=== PATIENT | female | born 1970 | race Two or more races ===

== ENCOUNTER 2017-01-14 12:24 | Emergency (ER) | payer OTHER ==
[2017-01-14 12:37] VITALS: TEMP 98.6; BMI 26.4
--- NOTE | 2017-01-14 12:45 | PDOC ---
History of Present Illness - General Chief Complaint: Cold Symptoms Stated Complaint: BODY ACHES CHILLS NAUSEA Time Seen by Provider: 01/14/17 12:30 History Source: Patient Exam Limitations: No Limitations - History of Present Illness Initial Comments: 46 yo F history HTN, kidney stones (scheduled for lithotripsy on January [address] Graves) presents with fever, chills, palpitations. She states that yesterday she abruptly started to feel ill, first warm, then chills. She denies abdominal pain, N/V/D. She checked her temperature last night and it was 100.1. IT has improved today, but she still feels ill. C/o poor appetite, decreased PO intake. Denies cp, SOB, cough. Past History - Past Medical History Allergies/Adverse Reactions: Allergies Allergy/AdvReac Type Severity Reaction Status Date / Time ciprofloxacin [From Cipro] AdvReac yeast Verified 01/14/17 12:43 infection ciprofloxacin HCl AdvReac Verified 01/14/17 12:44 [From Cipro] Home Medications: Ambulatory Orders Amlodipine Besylate [Norvasc -] 2.5 mg PO DAILY tablet 10/01/15 Atorvastatin Ca [Lipitor] 20 mg PO HS 01/14/17 Terbinafine HCl [Lamisil] 250 mg PO DAILY 01/14/17 Anemia: No Asthma: No Cancer: No Cardiac Disorders: No CVA: No COPD: No CHF: No DVT: No Dementia: No Diabetes: No Dialysis: No GI Disorders: No Disorders: Yes (RENAL COLIC) HTN: Yes Hypercholesterolemia: Yes Kidney Stones: Yes - Surgical History Cholecystectomy: Yes - Immunization History Immunization Up to Date: Yes - Psycho/Social/Smoking Cessation Hx Anxiety: No Suicidal Ideation: No Smoking Status: No Smoking History: Former smoker Have you smoked in the past 12 months: No Number of Cigarettes Smoked Daily: 0 If you are a former smoker, when did you quit?: 2001 Information on smoking cessation initiated: No Hx Alcohol Use: Yes (SOCIAL) Drug/Substance Use Hx: No Substance Use Type: Alcohol Review of Systems - Review of Systems Able to Perform ROS?: Yes Comments:: GENERAL/CONSTITUTIONAL: +Fever/chills. +Weakness. HEAD, EYES, EARS, NOSE AND THROAT: No change in vision. No ear pain or discharge. No sore throat. CARDIOVASCULAR: No chest pain or shortness of breath. RESPIRATORY: No cough, wheezing, or hemoptysis. GASTROINTESTINAL: No nausea, vomiting, diarrhea or constipation. GENITOURINARY: No dysuria, frequency, or change in urination. MUSCULOSKELETAL: No joint or muscle swelling or pain. No neck or back pain. SKIN: No rash NEUROLOGIC: No headache, vertigo, loss of consciousness, or change in strength/ sensation. ENDOCRINE: No increased thirst. No abnormal weight change. HEMATOLOGIC/LYMPHATIC: No anemia, easy bleeding, or history of blood clots. ALLERGIC/IMMUNOLOGIC: No hives or skin allergy. *Physical Exam - Vital Signs Last Vital Signs Temp Pulse Resp BP Pulse Ox 98.6 F 94 H 18 116/77 100 01/14/17 12:27 01/14/17 12:27 01/14/17 12:27 01/14/17 12:01/14/17 12:27 - Physical Exam Comments: GENERAL: Awake, alert, and fully oriented, in no acute distress. Nontoxic. HEAD: No signs of trauma EYES: PERRLA, EOMI, sclera anicteric, conjunctiva clear ENT: Auricles normal inspection, hearing grossly normal, nares patent, oropharynx clear without exudates. Dry mucosa NECK: Normal ROM, supple, no lymphadenopathy, JVD, or masses LUNGS: Breath sounds equal, clear to auscultation bilaterally. No wheezes, and no crackles HEART: Regular rate and rhythm, normal S1 and S2, no murmurs, rubs or gallops ABDOMEN: Soft, nontender, normoactive bowel sounds. No guarding, no rebound. No masses EXTREMITIES: Normal range of motion, no edema. No clubbing or cyanosis. No cords , erythema, or tenderness NEUROLOGICAL: Cranial nerves II through XII grossly intact. Normal speech, normal gait SKIN: Warm, Dry, normal turgor, no rashes or lesions noted. Heart Score/ECG Review - ECG Impressions Comment:: EKG read 13:28- NSR 86 bpm, no acute ST/T changes ED Treatment Course - LABORATORY CBC & Chemistry Diagram: 01/14/17 13:38 01/14/17 13:38 Medical Decision Making - Medical Decision Making Pt presented with fever yesterday, feeling weak and nauseous today. No other specific symptoms. In light of history of kidney stones, obtained sepsis workup , for concern for infected stone. UA was wnl. Lactic negative. CBC and CMP wnl. CXR no acute findings. At this point, CT was obtained to evaluate the stones, r/ o hydro. No acute findings on CT. Patient afebrile during entire ED stay, tolerating PO. Stable for DC home. I counseled her to f/u with Dr. Graves as soon as possible, call in AM to discuss her symptoms from the weekend, as she is scheduled for procedure on . *DC/Admit/Observation/Transfer Diagnosis at time of Disposition: Fever Qualifiers: Fever type: unspecified Qualified Code(s): R50.9 - Fever, unspecified - Discharge Dispostion Disposition: HOME Condition at time of disposition: Stable Admit: No - Patient Instructions Printed Discharge Instructions: DI for Fever (Symptom) -- Adult Additional Instructions: Tylenol as needed for fever. Follow up with urology- call tomorrow to discuss everything.
[2017-01-14] MEDS ORDERED: SODIUM CHLORIDE 1,000 ML IV STA (13:17)
[2017-01-14 13:31] LABS: PH,URINE 5.5 (4.5-8); URINE APPEARANCE Clear; URINE BILIRUBIN Negative (NEGATIVE); URINE BLOOD Trace-intact (NEGATIVE); URINE GLUCOSE (UA) Negative (NEGATIVE); URINE KETONE Negative (NEGATIVE); URINE LEUK ESTERASE Negative (NEGATIVE); URINE NITRITE Negative (NEGATIVE); URINE UROBILINOGEN 0.2 (0.2-1.0)
[2017-01-14 13:32] LABS: URINE COLOR YELLOW; URINE PROTEIN 1+ (NEGATIVE)
[2017-01-14 13:41] LABS: CALCIUM OXALATE CRYSTALS FEW /hpf (NONE SEEN); URINE BACTERIA FEW /hpf (NEGATIVE); URINE RBC 0-2 /hpf (0-3)
[2017-01-14 13:50] LABS: BASOPHIL 0.9 % (0-2.0); EOSINOPHIL 0.9 % (0-4.5); MCH 29.3 pg (25.7-33.7); MCHC 34.5 g/dl (32.0-36.0); MEAN CELL VOLUME 84.9 fl (80-96); MEAN PLT VOLUME 9.1 fl (7.5-11.1); NEUTROPHILS 65.6 % (42.8-82.8); PLATELET COUNT 165 K/MM3 (134-434); RDW 12.6 % (11.6-15.6); WHITE BLOOD COUNT 4.8 K/mm3 (4.0-10.8)
[2017-01-14] MEDS ORDERED: IBUPROFEN 600 MG TABLET (FP) PO ONE ×2 (13:59→14:01)
[2017-01-14 14:01] LABS: ALK PHOS 112 U/L (32-92); ANION GAP 3 (8-16); BILIRUBIN,TOTAL 0.6 mg/dl (0.2-1.0); CALCIUM 8.6 mg/dl (8.4-10.2); CO2 25 mmol/L (22-28); CREATININE 0.6 mg/dl (0.6-1.3); GLUCOSE,RANDOM 100 mg/dl (74-106); SGOT/AST 22 U/L (10-42); SGPT/ALT 10 U/L (10-40); TOT PROT 6.5 g/dl (6.4-8.3)
[2017-01-14 16:29] VITALS: BP 118/76; PULSE 86
--- NOTE | 2017-01-16 09:23 | EKG ---
Test Reason : Blood Pressure : / mmHG Vent. Rate : 086 BPM Atrial Rate : 086 BPM P-R Int : 160 ms QRS Dur : 086 ms QT Int : 378 ms P-R-T Axes : 060 -21 045 degrees QTc Int : 452 ms NORMAL SINUS RHYTHM POSSIBLE LEFT ATRIAL ENLARGEMENT POSSIBLE ANTERIOR INFARCT (CITED ON OR BEFORE 29-SEP-2015) WHEN COMPARED WITH ECG OF 29-SEP-2015 22:48, NO SIGNIFICANT CHANGE WAS FOUND Confirmed by MD ELKINS MARJORY ([id number]) on 01/16/2017 9:23:44 AM Referred By: CHEMO LOPEZ Confirmed By:RAMON ELKINS MD
== END 2017-01-14 18:58 | disposition home or self-care (01) ==
LOC: FER 12:24
PROC: 3E0337Z Introduction of Electrolytic and Water Balance Substance into Peripheral Vein, Percutaneous Approach (ICD-10-PCS; principal; 2017-01-14)
DX: R50.9 Fever, unspecified (principal); I10 Essential (primary) hypertension; E78.00 Pure hypercholesterolemia, unspecified; Z87.891 Personal history of nicotine dependence; Z87.442 Personal history of urinary calculi
CPT/HCPCS: 36415; 71010-TC; 74176; 80053; 81003; 81015; 83605; 84703; 85025; 87040; 93005; 99283-25

== ENCOUNTER 2017-01-17 11:12 | Emergency (ER) | payer OTHER ==
[2017-01-17 11:15] VITALS: TEMP 98.8; BMI 26.4
[2017-01-17] MEDS ORDERED: ONDANSETRON 4 MG/2 ML VIAL IVPUSH ONE (11:37)
[2017-01-17] MEDS ORDERED: SODIUM CHLORIDE 1,000 ML IV STA ×2 (11:37→13:47)
[2017-01-17] MEDS ORDERED: ONDANSETRON 4 MG/2 ML VIAL ONE (11:39)
[2017-01-17 13:03] LABS: BASOPHIL 0.3 % (0-2.0); EOSINOPHIL 1.8 % (0-4.5); MCH 28.7 pg (25.7-33.7); MCHC 34.3 g/dl (32.0-36.0); MEAN CELL VOLUME 83.7 fl (80-96); MEAN PLT VOLUME 9.5 fl (7.5-11.1); NEUTROPHILS 57.1 % (42.8-82.8); PLATELET COUNT 179 K/MM3 (134-434); RDW 13.2 % (11.6-15.6)
[2017-01-17 13:21] LABS: ALBUMIN 3.7 g/dl (3.4-5.0); ANION GAP 7 (8-16); BILIRUBIN,TOTAL 0.6 mg/dL (0.2-1.0); CALCIUM 9.4 mg/dL (8.5-10.1); CO2 28 mmol/L (21-32); CREATININE 0.7 mg/dL (0.55-1.02); GLUCOSE,RANDOM 92 mg/dL (74-106); SGOT/AST 21 U/L (15-37); SGPT/ALT 18 U/L (12-78); TOT PROT 6.8 g/dl (6.4-8.2)
[2017-01-17 13:22] LABS: ALK PHOS 133 U/L (45-117)
[2017-01-17] MEDS ORDERED: ONDANSETRON *ODT* 4 MG TABLET SL ONE (13:47)
[2017-01-17] MEDS ORDERED: POTASSIUM CHLORIDE TABS 20 MEQ TABLET.ER (FP) PO ONE ×2 (13:47→14:14)
[2017-01-17] MEDS ORDERED: DIPHENOXYLATE 2.5/ATROPINE.025 1 COMBO TABLET PO ONE (13:58)
--- NOTE | 2017-01-17 13:59 | PDOC ---
History of Present Illness - General History Source: Patient Exam Limitations: No Limitations - History of Present Illness Initial Comments: 01/17/17 14:01 The patient is a 46 year old female, with a significant past medical history of hypertension, hyperlipidemia, and kidney stones, who presents to the emergency department complaining of nausea, vomiting, and diarrhea for approximately 3 days. The patient reports she has been unable to tolerate anything PO and took an imodium with no relief. Patient reports her emetic episodes are yellow, nonbloody, and nonbilious. She reports diarrhea every hour yesterday, which she describes as watery. Patient denies any recent travel or any known sick contacts. She denies any fever, chills, weakness, or body aches. Per records, the patient was recently in the ED on 01/14/17 with similar symptoms. Patient states she feels like she is putting out more fluids than she is taking in. Allergies: Ciprofloxacin HCl Past Surgical History: Cholecystectomy Social History: Former smoker. Social ETOH use. No recreational drug use. PCP: Dr. Graves <Jett Abdul - Last Filed: 01/17/17 16:22> <Fernando Vo - Last Filed: 01/17/17 16:32> - General Chief Complaint: Vomiting/Diarrhea Stated Complaint: DIARRHEA Time Seen by Provider: 01/17/17 11:29 Past History <Jett Abdul - Last Filed: 01/17/17 16:22> - Past Medical History Anemia: No Asthma: No Cancer: No Cardiac Disorders: No CVA: No COPD: No CHF: No DVT: No Dementia: No Diabetes: No Dialysis: No GI Disorders: No Disorders: No HTN: Yes Hypercholesterolemia: Yes Kidney Stones: Yes - Surgical History Cholecystectomy: Yes - Immunization History Immunization Up to Date: Yes - Psycho/Social/Smoking Cessation Hx Anxiety: No Suicidal Ideation: No Smoking Status: No Smoking History: Never smoked Have you smoked in the past 12 months: No Number of Cigarettes Smoked Daily: 0 If you are a former smoker, when did you quit?: 2001 Hx Alcohol Use: No Drug/Substance Use Hx: No Substance Use Type: None <Fernando Vo - Last Filed: 01/17/17 16:32> - Past Medical History Allergies/Adverse Reactions: Allergies Allergy/AdvReac Type Severity Reaction Status Date / Time ciprofloxacin HCl AdvReac Verified 01/17/17 11:15 [From Cipro] Home Medications: Ambulatory Orders Amlodipine Besylate [Norvasc -] 2.5 mg PO DAILY tablet 10/01/15 Atorvastatin Ca [Lipitor] 20 mg PO HS 01/14/17 Terbinafine HCl [Lamisil] 250 mg PO DAILY 01/14/17 Ondansetron [Zofran -] 4 mg PO TID #21 tablet 01/17/17 Review of Systems - Review of Systems Able to Perform ROS?: Yes Comments:: 01/17/17 14:02 GENERAL/CONSTITUTIONAL: No fever or chills. No weakness. HEAD, EYES, EARS, NOSE AND THROAT: No change in vision. No ear pain or discharge. No sore throat. CARDIOVASCULAR: No chest pain or shortness of breath. RESPIRATORY: No cough, wheezing, or hemoptysis. GASTROINTESTINAL: Yes: +nausea, +vomiting, +diarrhea. No constipation. GENITOURINARY: No dysuria, frequency, or change in urination. MUSCULOSKELETAL: No joint or muscle swelling or pain. No neck or back pain. SKIN: No rash NEUROLOGIC: No headache, vertigo, loss of consciousness, or change in strength/ sensation. ENDOCRINE: No increased thirst. No abnormal weight change. HEMATOLOGIC/LYMPHATIC: No anemia, easy bleeding, or history of blood clots. ALLERGIC/IMMUNOLOGIC: No hives or skin allergy. <FrankoGiomilsleon - Last Filed: 01/17/17 16:22> *Physical Exam - Vital Signs Last Vital Signs Temp Pulse Resp BP Pulse Ox 98.8 F 88 20 114/78 99 01/17/17 11:12 01/17/17 11:12 01/17/17 11:12 01/17/17 11:12 01/17/17 11:12 - Physical Exam Comments: 01/17/17 14:02 GENERAL: Awake, alert, and fully oriented, in no acute distress HEAD: No signs of trauma EYES: PERRLA, EOMI, sclera anicteric, conjunctiva clear ENT: Auricles normal inspection, hearing grossly normal, nares patent, oropharynx clear without exudates. Moist mucosa NECK: Normal ROM, supple, no lymphadenopathy, JVD, or masses LUNGS: Breath sounds equal, clear to auscultation bilaterally. No wheezes, and no crackles HEART: Regular rate and rhythm, normal S1 and S2, no murmurs, rubs or gallops ABDOMEN: Soft, nontender, normoactive bowel sounds. No guarding, no rebound. No masses EXTREMITIES: Normal range of motion, no edema. No clubbing or cyanosis. No cords , erythema, or tenderness NEUROLOGICAL: Cranial nerves II through XII grossly intact. Normal speech, normal gait SKIN: Warm, Dry, normal turgor, no rashes or lesions noted. <Jett Abdul - Last Filed: 01/17/17 16:22> - Vital Signs Last Vital Signs Temp Pulse Resp BP Pulse Ox 98.8 F 88 20 114/78 99 01/17/17 11:12 01/17/17 11:12 01/17/17 11:12 01/17/17 11:12 01/17/17 11:12 <Fernando Vo - Last Filed: 01/17/17 16:32> Heart Score/ECG Review - ECG Intrepretation Comment:: 01/17/17 14:02 Vent Rate: 77 bpm IMPRESSION: Normal sinus rhythm. Right superior axis deviation. <Jett Abdul - Last Filed: 01/17/17 16:22> ED Treatment Course - LABORATORY CBC & Chemistry Diagram: 01/17/17 11:55 01/17/17 12:05 - ADDITIONAL ORDERS Additional order review: Laboratory Results 01/17/17 12:05 Sodium 141 Potassium 3.3 L Chloride 106 Carbon Dioxide 28 Anion Gap 7 L BUN 9 D Creatinine 0.7 Creat Clearance w eGFR > 60 Random Glucose 92 Calcium 9.4 Total Bilirubin 0.6 D AST 21 D ALT 18 Alkaline Phosphatase 133 H D Total Protein 6.8 Albumin 3.7 Lipase 80 01/17/17 11:55 RBC 4.67 MCV 83.7 MCHC 34.3 RDW 13.2 MPV 9.5 Neutrophils % 57.1 Lymphocytes % 30.9 Monocytes % 9.9 Eosinophils % 1.8 Basophils % 0.3 - Medications Given in the ED: ED Medications Discontinued Medications Generic Name Dose Route Start Last Admin Trade Name Freq PRN Reason Stop Dose Admin Sodium Chloride 1,000 mls @ 2,000 mls/hr 01/17/17 11:37 01/17/17 12:04 Normal Saline - IV 01/17/17 12:06 2,000 mls/hr ASDIR STA Administration Ondansetron HCl 4 mg 01/17/17 11:37 01/17/17 12:05 Zofran Injection IVPUSH 01/17/17 11:38 4 mg ONCE ONE Administration <Jett Abdul - Last Filed: 01/17/17 16:22> - LABORATORY CBC & Chemistry Diagram: 01/17/17 11:55 01/17/17 12:05 - ADDITIONAL ORDERS Additional order review: Laboratory Results 01/17/17 12:05 Sodium 141 Potassium 3.3 L Chloride 106 Carbon Dioxide 28 Anion Gap 7 L BUN 9 D Creatinine 0.7 Creat Clearance w eGFR > 60 Random Glucose 92 Calcium 9.4 Total Bilirubin 0.6 D AST 21 D ALT 18 Alkaline Phosphatase 133 H D Total Protein 6.8 Albumin 3.7 Lipase 80 01/17/17 11:55 RBC 4.67 MCV 83.7 MCHC 34.3 RDW 13.2 MPV 9.5 Neutrophils % 57.1 Lymphocytes % 30.9 Monocytes % 9.9 Eosinophils % 1.8 Basophils % 0.3 - Medications Given in the ED: ED Medications Discontinued Medications Generic Name Dose Route Start Last Admin Trade Name Freq PRN Reason Stop Dose Admin Sodium Chloride 1,000 mls @ 2,000 mls/hr 01/17/17 11:37 01/17/17 12:04 Normal Saline - IV 01/17/17 12:06 2,000 mls/hr ASDIR STA Administration Ondansetron HCl 4 mg 01/17/17 11:37 01/17/17 12:05 Zofran Injection IVPUSH 01/17/17 11:38 4 mg ONCE ONE Administration <Fernando Vo - Last Filed: 01/17/17 16:32> *DC/Admit/Observation/Transfer - Attestations Scribe Attestion: 01/17/17 14:02 Documentation prepared by Jett Abdul, acting as medical records administrator for Fernando Vo DO. <Jett Abdul - Last Filed: 01/17/17 16:22> - Discharge Dispostion Admit: No - Attestations Physician Attestion: 01/17/17 13:59 I, Dr. Fernando Vo, attest that this document has been prepared under my direction and personally reviewed by me in its entirety. I further attest, that it accurately reflects all work, treatment, procedures and medical decision -making performed by me. <Fernando Vo - Last Filed: 01/17/17 16:32> Diagnosis at time of Disposition: Gastroenteritis - Discharge Dispostion Disposition: HOME Condition at time of disposition: Good - Prescriptions Prescriptions: Ondansetron [Zofran -] 4 mg PO TID #21 tablet - Referrals Referrals: Ortiz Gore MD [Primary Care Provider] - - Patient Instructions Printed Discharge Instructions: DI for Viral Gastroenteritis -- Adult Additional Instructions: [place]- Sorry that you feel so horrible. Your tests are all good. Please use the zofran to control your nausea and vomiting. Clear liquids only until you follow up with your doctor in a day or two. Return to us if any problems or concerns. Best- Dr. Fernando Vo - Post Discharge Activity Work/School Note: Back to Work
[2017-01-17] MEDS ORDERED: diphenhydrAMINE HCL 12.5 MG/5 ML UNIT-DOSE CUPS PO ONE (14:08)
[2017-01-17] MEDS ORDERED: LIDOCAINE VISCOUS 2% ORAL/TOP 100 ML BOTTLE MM ONE (14:08)
[2017-01-17] MEDS ORDERED: RANITIDINE HCL 150 MG/10 ML UNIT-DOSE CUP PO ONE (14:08)
[2017-01-17] MEDS ORDERED: DIPHENOXYLATE 2.5/ATROPINE.025 1 COMBO TABLET ONE (14:13)
[2017-01-17] MEDS ORDERED: ONDANSETRON 8 MG TABLET (FP) PO ONE (14:14)
[2017-01-17] MEDS ORDERED: diphenhydrAMINE HCL 12.5 MG/5 ML BULK BOTTLE ONE (14:19)
[2017-01-17 15:08] LABS: TROPONIN I < 0.02 ng/ml (0.00-0.05)
[2017-01-17 16:25] LABS: URINE APPEARANCE CLOUDY; URINE BILIRUBIN NEGATIVE (NEGATIVE); URINE BLOOD NEGATIVE (NEGATIVE); URINE COLOR LTYELLOW; URINE GLUCOSE (UA) NEGATIVE (NEGATIVE); URINE KETONE NEGATIVE (NEGATIVE); URINE NITRITE NEGATIVE (NEGATIVE); URINE PROTEIN NEGATIVE (NEGATIVE); URINE UROBILINOGEN NEGATIVE mg/dL (0.2-1.0)
[2017-01-17 16:31] LABS: URINE LEUK ESTERASE 3+ (NEGATIVE)
[2017-01-17 16:38] VITALS: BP 105/70; PULSE 82
[2017-01-17 17:40] LABS: URINE BACTERIA RARE /hpf (NONE SEEN); URINE MUCUS RARE; URINE RBC 7 /hpf (0-3); URINE WBC 29 /hpf (3-5)
== END 2017-01-17 17:02 | disposition home or self-care (01) ==
LOC: JER 11:12
PROC: 3E033GC Introduction of Other Therapeutic Substance into Peripheral Vein, Percutaneous Approach (ICD-10-PCS; principal; 2017-01-17)
PROC: 3E0337Z Introduction of Electrolytic and Water Balance Substance into Peripheral Vein, Percutaneous Approach (ICD-10-PCS; 2017-01-17)
DX: K52.9 Noninfective gastroenteritis and colitis, unspecified (principal); I10 Essential (primary) hypertension; E78.5 Hyperlipidemia, unspecified; Z87.442 Personal history of urinary calculi; Z87.891 Personal history of nicotine dependence
CPT/HCPCS: 71020-TC; 80053; 81003; 81015; 82550; 83690; 84484; 85025; 96361; 96374; 99283-25

== ENCOUNTER 2017-06-25 11:45 | Emergency (ER) | payer OTHER ==
[2017-06-25] MEDS ORDERED: ACETAMINOPHEN 325 MG TABLET (FP) PO ONE (11:47)
--- NOTE | 2017-06-25 11:50 | PDOC ---
History of Present Illness - General Chief Complaint: Laceration Stated Complaint: LACERATION TO BACK OF HEAD Time Seen by Provider: 06/25/17 11:47 - History of Present Illness Initial Comments: 06/25/17 11:48 47yo female presents ambulatory from home after hitting her head on a metal board. States she was cleaning her kitchen when she hit her head. States she did not have LOC. Pt c/o pain at the site - bleeding from posterior scalp. Pt states tetanus UTD. Did not fall. C/o headache and is shaken up from seeing the bleeding. Pt tearful in the exam room. No anticoagulants or antiplt meds Neuro intact PMHx: HTN, HLD - on lipitor and norvasc PSHx: ezra Allergies: cipro Past History - Past Medical History Allergies/Adverse Reactions: Allergies Allergy/AdvReac Type Severity Reaction Status Date / Time ciprofloxacin HCl AdvReac Verified 06/25/17 11:47 [From Cipro] Home Medications: Ambulatory Orders Amlodipine Besylate [Norvasc -] 2.5 mg PO DAILY tablet 10/01/15 Atorvastatin Ca [Lipitor] 20 mg PO HS 01/14/17 Anemia: No Asthma: No Cancer: No Cardiac Disorders: No CVA: No COPD: No CHF: No DVT: No Dementia: No Diabetes: No Dialysis: No GI Disorders: No Disorders: No HTN: Yes Hypercholesterolemia: Yes Kidney Stones: Yes - Surgical History Cholecystectomy: Yes - Immunization History Immunization Up to Date: Yes - Suicide/Smoking/Psychosocial Hx Smoking Status: No Smoking History: Never smoked Have you smoked in the past 12 months: No Number of Cigarettes Smoked Daily: 0 If you are a former smoker, when did you quit?: 2001 Hx Alcohol Use: No Drug/Substance Use Hx: No Substance Use Type: None Review of Systems - Review of Systems Able to Perform ROS?: Yes Is the patient limited Dutch proficient: No Constitutional: Yes: Other (anxious). No: Chills, Fever HEENTM: No: Eye Pain, Blurred Vision, Nose Pain, Throat Pain Respiratory: No: Cough, Shortness of Breath, Wheezing Cardiac (ROS): No: Chest Pain, Irregular Heart Rate ABD/GI: No: Diarrhea, Nausea, Vomiting : No: Burning, Dysuria Musculoskeletal: Yes: Other (paraspinal neck pain). No: Back Pain Integumentary: Yes: Other (laceration linear to posterior occipital region about 1.5cm in length - linear and superficial -no active bleeding). No: Bruising Neurological: Yes: Headache. No: Numbness, Paresthesia, Dizziness Psychiatric: Yes: Anxiety All Other Systems: Reviewed and Negative *Physical Exam - Vital Signs 06/25/17 12:11 Selected Entries 06/25/17 11:46 Temperature 98.5 F Pulse Rate 105 H Respiratory 20 Rate Blood Pressure 168/101 O2 Sat by Pulse 98 Oximetry (%) Weight 73.482 kg - Physical Exam General Appearance: Yes: Nourished, Appropriately Dressed, Other (anxious/ tearful) HEENT: positive: EOMI, LEO, Normal Voice, Pharynx Normal. negative: Rhinorrhea Neck: positive: Supple, Other (paraspinal ttp, no midline ttp, no step offs or deformities). negative: Tender, Rigid, Decreased range of motion Respiratory/Chest: positive: Lungs Clear, Normal Breath Sounds. negative: Respiratory Distress, Wheezing Cardiovascular: positive: Regular Rhythm, Tachycardia Gastrointestinal/Abdominal: positive: Flat, Soft. negative: Guarding, Rebound, Tenderness Musculoskeletal: positive: Normal Inspection. negative: CVA Tenderness, Vertebral Tenderness Extremity: positive: Normal Capillary Refill, Normal Inspection, Normal Range of Motion. 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, Fully Oriented, Alert, Normal Mood/ Affect, Normal Response, Motor Strength 5/5, Other (ambulatory with a steady gait) Procedures - Laceration/Wound Repair Posterior Head Wound Length: to 2.5 cm Wound Explored: clean Wound's Depth, Shape: superficial, linear Irrigated w/ Saline: Yes Anesthesia: 2% Lidocaine w/ Epi Amount of Anesthetic (ccs): 1 Wound Debrided: minimal Wound Repaired With: [place] Number of Sutures: 3 (farnaz) Layer Closure: Yes Sterile Dressing Applied: Yes Progress: 06/25/17 12:09 pt tolerated the procedure well Medical Decision Making - Medical Decision Making 06/25/17 12:12 a/p: 47yo female with laceration to posterior head -neuro intact -superficial lac will need farnaz -will numb prior to farnaz -no focal neuro deficits -low impact head injury- no risk factors for intracranial bleeding, neuro intact , no loc, no anticoag/antiplts -will repair lac 06/25/17 12:43 re-ass: pt tolerated po intake -crackers and juice repeat neuro exam intact no focal deficits no oozing or drainage from laceration applied dressing pt stable for d/c to home discussed risks/benefits of ct scan no ct at this time and patient agrees discussed staple removal discussed all reasons to return to the ED and need for follow up. All questions answered. 06/25/17 12:47 repeat vitals: 119/84, hr 84 06/25/17 12:58 pt has been ambulatory in the ED *DC/Admit/Observation/Transfer Diagnosis at time of Disposition: Occipital scalp laceration - Discharge Dispostion Disposition: HOME Condition at time of disposition: Stable Admit: No - Referrals - Patient Instructions Printed Discharge Instructions: DI for Laceration Repair -- [place], DI for Closed Head Injury Additional Instructions: Please have the farnaz removed in 7 days. Please do not wash your head today - do not get the laceration wet for 24 hours. Please apply antibiotic topical ointment to the laceration. Please make a follow up appointment with your PMD. Please return to the ED with any further complaints. - Post Discharge Activity
[2017-06-25 11:57] VITALS: TEMP 98.5; BMI 26.9
[2017-06-25] MEDS ORDERED: LIDO 2%/EPI 1:200000 PRESRVFRE (20 ML SDVIAL) ONE (11:58)
[2017-06-25] MEDS ORDERED: ACETAMINOPHEN 325 MG TABLET (FP) ONE (11:59)
[2017-06-25] MEDS ORDERED: LIDOCAINE HCL 2% (50ML VIAL) SQ ONE (12:07)
[2017-06-25 12:49] VITALS: BP 119/84; PULSE 89
== END 2017-06-25 12:53 | disposition home or self-care (01) ==
LOC: FER 11:45
PROC: 0HQ0XZZ Repair Scalp Skin, External Approach (ICD-10-PCS; principal; 2017-06-25)
DX: S01.01XA Laceration without foreign body of scalp, initial encounter (principal); W22.8XXA Striking against or struck by other objects, initial encounter; Y93.89 Activity, other specified; Y92.9 Unspecified place or not applicable; I10 Essential (primary) hypertension; E78.5 Hyperlipidemia, unspecified; Z87.891 Personal history of nicotine dependence
CPT/HCPCS: 99282-25

== ENCOUNTER 2017-07-02 14:28 | Emergency (ER) | payer OTHER ==
[2017-07-02 14:36] VITALS: BP 167/97; PULSE 88; TEMP 98; BMI 26.7
--- NOTE | 2017-07-02 15:29 | PDOC ---
Suture Removal/Wound Check HPI - History of Present Illness Chief Complaint: Suture/Staple Removal(Here) Stated Complaint: STAPLE REMOVED FROM SCALP WOUND Time Seen by Provider: 07/02/17 14:49 - Onset of Previous Treatment Comment:: 07/02/17 15:34 [place] 3 removed from the occiput. Wound well-healed. No swelling, erythema, warmth, drainage, or other sign of infection. Continued wound care and follow- up as directed. Past History - Past Medical History Allergies/Adverse Reactions: Allergies Allergy/AdvReac Type Severity Reaction Status Date / Time ciprofloxacin HCl AdvReac Verified 06/25/17 11:47 [From Cipro] Home Medications: Ambulatory Orders Amlodipine Besylate [Norvasc -] 2.5 mg PO DAILY tablet 10/01/15 Atorvastatin Ca [Lipitor] 20 mg PO HS 01/14/17 Anemia: No Asthma: No Cancer: No Cardiac Disorders: No CVA: No COPD: No CHF: No DVT: No Dementia: No Diabetes: No Dialysis: No GI Disorders: No Disorders: No HTN: Yes Hypercholesterolemia: Yes Kidney Stones: Yes - Surgical History Cholecystectomy: Yes - Immunization History Immunization Up to Date: Yes - Suicide/Smoking/Psychosocial Hx Smoking Status: No Smoking History: Former smoker Have you smoked in the past 12 months: No Number of Cigarettes Smoked Daily: 0 If you are a former smoker, when did you quit?: 2001 Information on smoking cessation initiated: No Hx Alcohol Use: No Drug/Substance Use Hx: No Substance Use Type: None *DC/Admit/Observation/Transfer Diagnosis at time of Disposition: Encounter for removal of sutures - Discharge Dispostion Disposition: HOME Condition at time of disposition: Improved Admit: No - Referrals - Patient Instructions Printed Discharge Instructions: DI for Suture Removal Additional Instructions: Recheck if bleeding or infection. Avoid vigorous combing or brushing for another 5 days. - Post Discharge Activity
== END 2017-07-02 15:38 | disposition home or self-care (01) ==
LOC: FER 14:28
DX: Z48.02 Encounter for removal of sutures (principal)
CPT/HCPCS: 99281-25

== ENCOUNTER 2017-11-13 17:12 | Emergency (ER) | payer OTHER ==
[2017-11-13 17:19] VITALS: BP 140/83; PULSE 80; TEMP 99.2; BMI 26.9
--- NOTE | 2017-11-13 17:55 | PDOC ---
History of Present Illness - General History Source: Patient Exam Limitations: No Limitations <Magi Rees - Last Filed: 11/13/17 17:49> - History of Present Illness Initial Comments: 11/13/17 18:00 Patient is a 47F, with PMHx of hypertension, hyperlipidemia, and kidney stones, who presents to the emergency department complaining of right sided scalp pain. She states that she had this scalp pain since yesterday. She woke up this morning and states that pain worsened. She also noticed white bumps on her scalp , especially on the right side. She states the scalp pain is worse when palpated. She states she has never felt this pain before. She also endorses blurry vision in her right eye as well as a headache and chills. She says she took Tylenol which helped minimally she says helps a little. She is unsure if she has had chicken pox when she was younger. She denies fever or recent antibiotics use. Allergies: Ciprofloxacin HCl Past Surgical History: Cholecystectomy Social History: Former smoker. Social ETOH use. No recreational drug use. PCP: Dr. Ortiz Gore <Layne Solares - Last Filed: 11/13/17 18:04> - General Chief Complaint: Pain, Acute Stated Complaint: PAIN ON SCALP Past History - Past Medical History Anemia: No Asthma: No Cancer: No Cardiac Disorders: No CVA: No COPD: No CHF: No DVT: No Dementia: No Diabetes: No Dialysis: No GI Disorders: No Disorders: No HTN: Yes Hypercholesterolemia: Yes Kidney Stones: Yes - Surgical History Cholecystectomy: Yes - Immunization History Immunization Up to Date: Yes - Suicide/Smoking/Psychosocial Hx Smoking Status: No Smoking History: Former smoker Have you smoked in the past 12 months: No Number of Cigarettes Smoked Daily: 0 If you are a former smoker, when did you quit?: 2001 Information on smoking cessation initiated: No Hx Alcohol Use: No Drug/Substance Use Hx: No Substance Use Type: None <Magi Rees - Last Filed: 11/13/17 17:49> <Layne Solares - Last Filed: 11/13/17 18:04> - Past Medical History Allergies/Adverse Reactions: Allergies Allergy/AdvReac Type Severity Reaction Status Date / Time ciprofloxacin HCl AdvReac Verified 11/13/17 17:14 [From [facility]] Home Medications: Ambulatory Orders Amlodipine Besylate [Norvasc -] 2.5 mg PO DAILY tablet 10/01/15 Atorvastatin Ca [Lipitor] 20 mg PO HS 01/14/17 Sulfamethoxazole/Trimethoprim [Bactrim Ds Tablet] 1 each PO BID #14 tablet 11/13 Valacyclovir HCl [Valtrex -] 1,000 mg PO TID #21 tablet 11/13/17 Review of Systems - Review of Systems Comments:: 11/13/17 18:01 GENERAL/CONSTITUTIONAL: No fever. +chills. No weakness. HEAD, EYES, EARS, NOSE AND THROAT: +right sided scalp pain.+ right eye pain. + blurry vision in right eye. No ear pain or discharge. No sore throat. GASTROINTESTINAL: No nausea, vomiting, diarrhea or constipation. GENITOURINARY: No dysuria, frequency, or change in urination. CARDIOVASCULAR: No chest pain or shortness of breath. RESPIRATORY: No cough, wheezing, or hemoptysis. MUSCULOSKELETAL: No joint or muscle swelling or pain. No neck or back pain. SKIN: +pustular skin lesions on right scalp NEUROLOGIC: No headache, vertigo, loss of consciousness, or change in strength/ sensation. ENDOCRINE: No increased thirst. No abnormal weight change. HEMATOLOGIC/LYMPHATIC: No anemia, easy bleeding, or history of blood clots. ALLERGIC/IMMUNOLOGIC: No hives or skin allergy. 11/13/17 18:04 <Layne Solares - Last Filed: 11/13/17 18:04> *Physical Exam - Vital Signs Last Vital Signs Temp Pulse Resp BP Pulse Ox 99.2 F 80 18 140/83 100 11/13/17 17:13 11/13/17 17:13 11/13/17 17:13 11/13/17 17:13 11/13/17 17:13 <Magi Rees - Last Filed: 11/13/17 17:49> - Vital Signs Last Vital Signs Temp Pulse Resp BP Pulse Ox 99.2 F 80 18 140/83 100 11/13/17 17:13 11/13/17 17:13 11/13/17 17:13 11/13/17 17:13 11/13/17 17:13 - Physical Exam Comments: 11/13/17 18:03 GENERAL: Awake, alert, and fully oriented, in no acute distress HEAD: No signs of trauma EYES: PERRLA, EOMI, sclera anicteric, conjunctiva clear ENT: Auricles normal inspection, nares patent, Moist mucosa NECK: Normal ROM, supple, no lymphadenopathy, JVD, or masses LUNGS: Breath sounds equal, clear to auscultation bilaterally. No wheezes, and no crackles HEART: Regular rate and rhythm, normal S1 and S2, no murmurs, rubs or gallops ABDOMEN: Soft, nontender, normoactive bowel sounds. No guarding, no rebound. No masses EXTREMITIES: Normal range of motion, no edema. No clubbing or cyanosis. No cords, erythema, or tenderness NEUROLOGICAL: Normal speech SKIN: C1 and C2 dermatomal distribution of vesicular and pustular lesions throughout. Few scattered lesions across the midline. No facial lesions. <Layne Solares - Last Filed: 11/13/17 18:04> Medical Decision Making - Medical Decision Making 11/13/17 17:49 47-year-old female with H/o HTN HLD here today complaining of right scalp rash. Patient states she woke up with a rash yesterday she noted a prodromal pain and burning sensation all throughout her scalp and her right side of her neck chest describes pain in the right side of her face denies any vision changes but feels pain behind her eye no corneal pain or light sensitivity denies any fevers chills no nausea no vomiting no travelcontacts On exam she's got diffuse pustular and vesicular lesions to the right posterior and lateral scalp in the C1/C2 distribution I exam shows no conjunctival injection no light sensitivity We'll achieve patient for shingles differential includes other folliculitis however due to the distribution single dermatome makes shingles most likely will treat with acyclovir and Bactrim for possible superimposed bacterial infection patient told to follow up with primary care doctor in the next 2 days <Magi Rees - Last Filed: 11/13/17 17:49> *DC/Admit/Observation/Transfer <Magi Rees - Last Filed: 11/13/17 17:49> - Attestations Scribe Attestion: 11/13/17 18:04 Documentation prepared by Layne Solares, acting as medical research scientist for Magi Rees MD. <Layne Solares - Last Filed: 11/13/17 18:04> Diagnosis at time of Disposition: Shingles - Discharge Dispostion Disposition: HOME Condition at time of disposition: Improved - Prescriptions Prescriptions: Sulfamethoxazole/Trimethoprim [Bactrim Ds Tablet] 1 each PO BID #14 tablet Valacyclovir HCl [Valtrex -] 1,000 mg PO TID #21 tablet - Referrals Referrals: Ortiz Gore MD [Primary Care Provider] - - Patient Instructions Printed Discharge Instructions: Gavin Additional Instructions: you should take valcyclovir 1 g three times daily x 7 days. you should also take bactrim double strength twice daily x 7 days. you can take motrin 600 mg every 8 hrs for pain. - Post Discharge Activity
[2017-11-13] MEDS ORDERED: valACYclovir HCL 1000 MG TABLET PO ONE (17:59)
[2017-11-13] MEDS ORDERED: SULFAMETHOXAZOLE/TRIMETHOPRIM 800MG/160MG D.S. TABLET PO ONE (18:00)
[2017-11-13] MEDS ORDERED: IBUPROFEN 600 MG TABLET (FP) PO ONE ×2 (18:00→18:03)
[2017-11-13] MEDS ORDERED: valACYclovir HCL 500 MG TABLET (FP) ONE (18:03)
[2017-11-13] MEDS ORDERED: SULFAMETHOXAZOLE/TRIMETHOPRIM 800MG/160MG D.S. TABLET ONE (18:03)
== END 2017-11-13 18:08 | disposition home or self-care (01) ==
LOC: FER 17:12
DX: B02.9 Zoster without complications (principal); I10 Essential (primary) hypertension; E78.5 Hyperlipidemia, unspecified
CPT/HCPCS: 99281-25

== ENCOUNTER 2017-11-19 00:39 | Emergency (ER) | payer OTHER ==
[2017-11-19 00:56] VITALS: BP 123/76; PULSE 78; TEMP 99.1; BMI 26.9
--- NOTE | 2017-11-19 00:57 | PDOC ---
History of Present Illness - General Chief Complaint: Pain, Acute Stated Complaint: SHINGLES/ CHEST PAIN History Source: Patient - History of Present Illness Initial Comments: 11/19/17 03:00 Pt comes with left sided chest pain ongoing for a day and worse tonight. Timing/Duration: 24 hours Severity: moderate Associated Symptoms: reports: chest pain, weakness. denies: denies symptoms, cough, diaphoresis, fever/chills, headaches, loss of appetite, malaise, nausea/ vomiting, rash, seizure, shortness of breath, syncope, other Aspirin Received prior to arrival: No: no aspirin today, unknown, 81 mg x 1, 81 mg x 2, 81 mg x 3, 81 mg x 4, 325 mg x 1, provided at home, provided by EMS, provided by ED Past History - Travel Traveled outside of the country in the last 30 days: No Close contact w/someone who was outside of country & ill: No - Past Medical History Allergies/Adverse Reactions: Allergies Allergy/AdvReac Type Severity Reaction Status Date / Time ciprofloxacin HCl AdvReac Verified 11/18/17 22:59 [From Cipro] Home Medications: Ambulatory Orders Amlodipine Besylate [Norvasc -] 2.5 mg PO DAILY tablet 10/01/15 Atorvastatin Ca [Lipitor] 20 mg PO HS 01/14/17 Sulfamethoxazole/Trimethoprim [Bactrim Ds Tablet] 1 each PO BID #14 tablet 11/13 Valacyclovir HCl [Valtrex -] 1,000 mg PO TID #21 tablet 11/13/17 Anemia: No Asthma: No Cancer: No Cardiac Disorders: No CVA: No COPD: No CHF: No DVT: No Dementia: No Diabetes: No Dialysis: No GI Disorders: No Disorders: No HTN: Yes Hypercholesterolemia: Yes Kidney Stones: Yes - Surgical History Cholecystectomy: Yes - Immunization History Immunization Up to Date: Yes - Suicide/Smoking/Psychosocial Hx Smoking Status: No Smoking History: Former smoker Have you smoked in the past 12 months: No Number of Cigarettes Smoked Daily: 0 If you are a former smoker, when did you quit?: 2001 Information on smoking cessation initiated: No Hx Alcohol Use: No Drug/Substance Use Hx: No Substance Use Type: None Review of Systems - Review of Systems Constitutional: Yes: Weakness HEENTM: No: Symptoms Reported, See HPI, Eye Pain, Blurred Vision, Tearing, Recent change in vision, Double Vision, Cataracts, Ear Pain, Ocular Prothesis, Ear Discharge, Nose Pain, Nose Congestion, Tinnitus, Nose Bleeding, Hearing Loss , Throat Pain, Throat Swelling, Mouth Pain, Dental Problems, Difficulty Swallowing, Mouth Swelling, Other Respiratory: No: Symptoms reported, See HPI, Cough, Orthopnea, Shortness of Breath, SOB with Exertion, SOB at Rest, Stridor, Wheezing, Productive cough, Hemoptysis, Other Cardiac (ROS): Yes: Chest Pain, Lightheadedness. No: Symptoms Reported, See HPI , Edema, Irregular Heart Rate, Palpitations, Syncope, Chest Tightness, Other ABD/GI: Yes: Abd. Pain w/ defecation : No: Symptoms Reported, See HPI, Burning, Dysuria, Discharge, Frequency, Flank Pain, Hematuria, Incontinence, Pain, Urgency, Testicular Mass, Testicular Swelling, Lesions, Testicular Pain, Other Musculoskeletal: No: Symptoms Reported, See HPI, Back Pain, Gout, Joint Pain, Joint Swelling, Muscle Pain, Muscle Weakness, Neck Pain, Joint Stiffness, Other Integumentary: No: Symptoms Reported, See HPI, Bruising, Change in Color, Change in Hair/Nails, Dryness, Erythema, Flushing, Lesions, Lumps, Pallor, Pruritus, Rash, Sweating, Other Psychiatric: Yes: Stressors. No: Anxiety, Depression, Frequent Crying, Sleep Pattern Change, Emotional Problems, Mood Swings, Change in Appetite, Other Endocrine: No: Symptoms Reported, See HPI, Excessive Sweating, Flushing, Intolerance to Cold, Intolerance to Heat, Increased Hunger, Increased Thirst, Increased Urine, Unexplained Weight Gain, Unexplained Weight Loss, Change in Weight, Other *Physical Exam - Vital Signs Last Vital Signs Temp Pulse Resp BP Pulse Ox 99.1 F 78 18 123/76 99 11/19/17 00:53 11/19/17 00:53 11/19/17 00:53 11/19/17 00:53 11/19/17 00:53 - Physical Exam General Appearance: Yes: Nourished, Appropriately Dressed HEENT: positive: EOMI, LEO, Normal ENT Inspection, TMs Normal, Pharynx Normal Neck: positive: Trachea midline, Normal Thyroid, Supple Respiratory/Chest: positive: Lungs Clear, Normal Breath Sounds. negative: Respiratory Distress, Accessory Muscle Use, Labored Respiration Cardiovascular: positive: Regular Rhythm, Regular Rate, S1, S2 Gastrointestinal/Abdominal: positive: Flat, Soft Musculoskeletal: positive: Normal Inspection Extremity: positive: Normal Capillary Refill, Normal Inspection, Normal Range of Motion Heart Score/ECG Review - Electrocardiogram EKG: Normal - Age Age: 45-65 - ECG Intrepretation Rhythm: Regular Rhythm - Coolin Coolin: Normal - QRS Poor R Wave Progression: No Q Wave Present: No - ST and T Early Repolarization: No Non Specific ST-T Wave changes: No - ECG Impressions Normal ECG: Yes Non-specific ST Elevation: No Ischemic Changes: No Bradycardia: No ED Treatment Course - LABORATORY CBC & Chemistry Diagram: 11/19/17 01:10 11/19/17 01:10 Medical Decision Making - Medical Decision Making 11/19/17 02:56 Pt was diagnosed with shingles of her scalp and treated with valtrex and bactrim DS for superinfection. Pt is in the midst of her abx and antivirals. Pt comes now with chest pain that is left sided and traveling down the left arm. SHe is under a great deal of stress due to housing problems and lawsuit eviction from her landlord. EKG normal;. Exam normal; Labs normal. Shingles rash on head is improving. Home with PMD follow up. 11/19/17 03:48 Cardiac enzymes normal. No indication for CXR as chest exam vitals and pulsox are normal. *DC/Admit/Observation/Transfer Diagnosis at time of Disposition: Chest pain - Discharge Dispostion Disposition: HOME Condition at time of disposition: Stable Decision to Admit order: No - Referrals - Patient Instructions Printed Discharge Instructions: DI for Chest Pain - Post Discharge Activity Forms/Work/School Notes: Back to Work
[2017-11-19 01:48] LABS: BASO % 0.6 % (0-2.0); EOS % 0.8 % (0-4.5); HEMATOCRIT 38.7 % (32.4-45.2); HEMOGLOBIN 13.1 GM/dL (10.7-15.3); LYMPH % 27.3 % (8-40); MCH 28.8 pg (25.7-33.7); MCHC 33.8 g/dl (32.0-36.0); MEAN CELL VOLUME 85.4 fl (80-96); MONO % 6.9 % (3.8-10.2); NEUT % 64.4 % (42.8-82.8); PLATELET COUNT 214 K/MM3 (134-434); RBC 4.53 M/mm3 (3.60-5.2); RDW 13.5 % (11.6-15.6); WHITE BLOOD COUNT 8.4 K/mm3 (4.0-10.0)
[2017-11-19 02:10] LABS: ANION GAP 3 (8-16); BLOOD UREA NITROGEN 16 mg/dL (7-18); CALCIUM 8.5 mg/dL (8.5-10.1); CHLORIDE 109 mmol/L (98-107); CO2 28 mmol/L (21-32); GLUCOSE,RANDOM 144 mg/dL (74-106); SODIUM 140 mmol/L (136-145)
--- NOTE | 2017-11-19 23:43 | EKG ---
Test Reason : Blood Pressure : / mmHG Vent. Rate : 077 BPM Atrial Rate : 077 BPM P-R Int : 156 ms QRS Dur : 088 ms QT Int : 402 ms P-R-T Axes : 060 019 042 degrees QTc Int : 454 ms NORMAL SINUS RHYTHM NORMAL ECG WHEN COMPARED WITH ECG OF 14-JAN-2017 13:25, NO SIGNIFICANT CHANGE WAS FOUND Confirmed by NOAH SOL MD ([id number]) on 11/19/2017 11:43:29 PM Referred By: MD CAMARA Confirmed By:NOAH SOL MD
== END 2017-11-19 01:14 | disposition home or self-care (01) ==
LOC: FER 00:39
DX: I10 Essential (primary) hypertension (principal); E78.00 Pure hypercholesterolemia, unspecified; Z87.891 Personal history of nicotine dependence
CPT/HCPCS: 36415; 80048; 82550; 84484; 85025; 93005; 93010; 99281-25

== ENCOUNTER 2018-01-17 19:10 | Emergency (ER) | payer OTHER ==
[2018-01-17 19:18] VITALS: BP 129/75; PULSE 78; TEMP 98.9; BMI 26.9
--- NOTE | 2018-01-17 19:38 | PDOC ---
History of Present Illness - General History Source: Patient Exam Limitations: No Limitations - History of Present Illness Initial Comments: 01/17/18 21:16 The patient is a 47 year old female with a significant PMH of hypertension, hypercholesterolemia, and a fast heartbeat who presents to the emergency department with neck pain for 2 days. The patient reports that her neck pain feels like a vein in her neck is throbbing and is a radiating pressure around to her right frontal head and nasal region. The patient states that she feels as if her nose is going to bleed. The patient states that this episode is intermittent. She states that she experienced some diaphoresis today at work as well as some dizziness at around 12pm today as well as on exam when sitting up. The patient reports that she has not experienced this pain before in the past . she reports that it does not feel like any headache she has had in the past. She reports taking 2 baby aspirin today. The patient reports an family history of heart disease and is concerned for that. She reports that she is driving to [place] in 3 days and wanted to make sure everything was okay.The patient denies any other symptoms. She denies any fever, chills, nausea, vomit, diarrhea, constipation or urinary symptoms. She denies any chest pain, shortness of breath, headache and dizziness. The patient denies any other complaints. <Stella Friedman - Last Filed: 01/17/18 21:16> - General History Source: Patient Exam Limitations: No Limitations <Gretta Peter - Last Filed: 01/17/18 23:10> - General Chief Complaint: Pain Stated Complaint: NECK/HEAD/SINUS PAIN Time Seen by Provider: 01/17/18 19:38 Past History <Stella Friedman - Last Filed: 01/17/18 21:16> - Past Medical History Anemia: No Asthma: No Cancer: No Cardiac Disorders: No CVA: No COPD: No CHF: No DVT: No Dementia: No Diabetes: No Dialysis: No GI Disorders: No Disorders: No HTN: Yes Hypercholesterolemia: Yes Kidney Stones: Yes - Surgical History Cholecystectomy: Yes - Immunization History Immunization Up to Date: Yes - Suicide/Smoking/Psychosocial Hx Smoking Status: No Smoking History: Former smoker Have you smoked in the past 12 months: No Number of Cigarettes Smoked Daily: 0 If you are a former smoker, when did you quit?: 2001 Information on smoking cessation initiated: No Hx Alcohol Use: No Drug/Substance Use Hx: No Substance Use Type: None <Gretta Peter - Last Filed: 01/17/18 23:10> - Past Medical History Allergies/Adverse Reactions: Allergies Allergy/AdvReac Type Severity Reaction Status Date / Time ciprofloxacin HCl AdvReac Verified 11/18/17 22:59 [From Cipro] Home Medications: Ambulatory Orders Amlodipine Besylate [Norvasc -] 2.5 mg PO DAILY tablet 10/01/15 Atorvastatin Ca [Lipitor] 20 mg PO HS 01/14/17 Review of Systems - Review of Systems Able to Perform ROS?: Yes Comments:: 01/17/18 21:17 GENERAL/CONSTITUTIONAL: No fever or chills. No weakness. HEAD, EYES, EARS, NOSE AND THROAT: No change in vision. No ear pain or discharge. No sore throat. CARDIOVASCULAR: No chest pain or shortness of breath. RESPIRATORY: No cough, wheezing, or hemoptysis. GASTROINTESTINAL: No nausea, vomiting, diarrhea or constipation. GENITOURINARY: No dysuria, frequency, or change in urination. MUSCULOSKELETAL:(+)neck pain. No joint or muscle swelling or pain. No back pain. SKIN: No rash NEUROLOGIC: (+)dizziness. No headache, vertigo, loss of consciousness, or change in strength/sensation. ENDOCRINE:(+)diaphoresis. No increased thirst. No abnormal weight change. HEMATOLOGIC/LYMPHATIC: No anemia, easy bleeding, or history of blood clots. ALLERGIC/IMMUNOLOGIC: No hives or skin allergy. <Stella Friedman - Last Filed: 01/17/18 21:16> *Physical Exam - Vital Signs Last Vital Signs Temp Pulse Resp BP Pulse Ox 98.9 F 78 16 129/75 99 01/17/18 19:14 01/17/18 19:14 01/17/18 19:14 01/17/18 19:14 01/17/18 19:14 - Physical Exam Comments: 01/17/18 21:18 GENERAL: The patient is in no acute distress. HEAD: Normal with no signs of trauma. EYES: PERRLA, EOMI, sclera anicteric, conjunctiva clear. ENT: Ears normal, nares patent, oropharynx clear without exudates. Moist mucous membranes. NECK: (+)pain in trapezius. No mastoid tenderness, no midline c-spine tenderness. Normal range of motion, supple without lymphadenopathy, JVD, or masses. LUNGS: Breath sounds equal, clear to auscultation bilaterally. No wheezes, and no crackles. HEART:Regular rate and rhythm, normal S1 and S2 without murmur, rub or gallop. ABDOMEN: Soft, nontender, normoactive bowel sounds. No guarding, no rebound. No masses palpable. EXTREMITIES: Normal range of motion, no edema. No clubbing or cyanosis. No erythema, or tenderness. NEUROLOGICAL: Cranial nerves II through XII grossly intact. Normal speech. No focal neurological deficits. MUSCULOSKELETAL: Back non-tender to palpation, no CVA tenderness SKIN: Warm, Dry, normal turgor, no rashes or lesions noted. <Stella Friedman - Last Filed: 01/17/18 21:16> - Vital Signs Last Vital Signs Temp Pulse Resp BP Pulse Ox 98.9 F 78 16 129/75 99 01/17/18 19:14 01/17/18 19:14 01/17/18 19:14 01/17/18 19:14 01/17/18 19:14 <Gretta Peter - Last Filed: 01/17/18 23:10> ED Treatment Course - LABORATORY CBC & Chemistry Diagram: 01/17/18 20:29 01/17/18 20:29 - ADDITIONAL ORDERS Additional order review: Laboratory Results 01/17/18 01/17/18 20:29 20:29 Sodium 138 Potassium 3.6 Chloride 105 Carbon Dioxide 28 Anion Gap 5 L BUN 14 Creatinine 0.8 Creat Clearance w eGFR > 60 Random Glucose 129 H D Calcium 9.0 Total Bilirubin 0.4 AST 21 ALT 13 D Alkaline Phosphatase 109 H Troponin I < 0.03 Total Protein 6.3 L Albumin 3.9 01/17/18 20:29 RBC 4.50 MCV 85.0 MCHC 34.8 RDW 12.2 MPV 9.8 Neutrophils % 62.0 Lymphocytes % 29.2 Monocytes % 7.1 Eosinophils % 1.1 Basophils % 0.6 - Medications Given in the ED: ED Medications Discontinued Medications Generic Name Dose Route Start Last Admin Trade Name Freq PRN Reason Stop Dose Admin Acetaminophen 1,000 mg 01/17/18 20:04 01/17/18 20:27 Ofirmev Injection - IVPB 01/17/18 20:05 1,000 mg ONCE ONE Administration Sodium Chloride 1,000 mls @ 1,000 mls/hr 01/17/18 20:04 01/17/18 20:27 Normal Saline - IV 01/17/18 21:03 1,000 mls/hr ASDIR STA Administration Meclizine HCl 25 mg 01/17/18 20:04 01/17/18 20:27 Antivert - PO 01/17/18 20:05 25 mg ONCE ONE Administration Metoclopramide HCl 10 mg 01/17/18 20:04 01/17/18 20:27 Reglan Injection - IVPUSH 01/17/18 20:05 10 mg ONCE ONE Administration <Stella Friedman - Last Filed: 01/17/18 21:16> - LABORATORY CBC & Chemistry Diagram: 01/17/18 20:29 01/17/18 20:29 <Gretta Peter - Last Filed: 01/17/18 23:10> Medical Decision Making - Medical Decision Making Ms. Rizzo Is a 47-year-old female with a history of hypertension, hyperlipidemia , strong family history of CVA and coronary artery disease. She presents emergency department with a complaint of right occipital throbbing headache as well as head pressure on the right side of her head. No head trauma. No loss of consciousness. No focal weakness or numbness. She presents concerned about having initial. She describes her headache as head pressure, feeling as if she needs blood to "drain out of her nose". No visual changes, no tinnitus. She felt dizzy/vertiginous while at work. No nausea, vomiting. No prior episodes like this. She is particularly concerned because she will be driving to [place] on Sunday ( 3 days) On examination: She is awake, alert, oriented, answers all questions. Patient is overall well-appearing. Extra ocular movements are intact, pupils are round and reactive. No facial asymmetry noted. She did has no mastoid tenderness. She is point tenderness overlying the right trapezius muscle at the insertion point occiput No midline cervical spine tenderness to palpation Heart is regular with no murmur Lungs are clear with no wheezing, rhonchi, rales No abdominal tenderness Patient's neurological examination is normal with normal motor strength in the upper and lower extremities. Normal cranial nerve function Normal sensation throughout Speech is intact and normal. Differential diagnosis: This patient presents with what seems to be a tension headache, versus other type of headache. She is concerned about stroke as well as ACS. Given her strong family history Will do: Blood tests, EKG, CT head. Will give fluids as patient notes increased dizziness with sitting up and my examination Will give Reglan, Tylenol for her headache Will give meclizine for dizziness. Will reassess 01/17/18 21:02 Laboratory Tests 01/17/18 01/17/18 20:29 20:29 WBC 9.3 Hgb 13.3 Hct 38.3 Plt Count 228 Sodium 138 Potassium 3.6 Chloride 105 Carbon Dioxide 28 BUN 14 Creatinine 0.8 Random Glucose 129 H D EKG: SR, rate of 70 bpm, axis nml, no ST elevations or depressions 01/17/18 21:04 01/17/18 23:06 CT negative Will discharge to home Follow up with PMD Return to the ER for any other concerns or complaints Clinical Impression: headache, initial presentation Dizziness, initial presentation <Gretta Peter - Last Filed: 01/17/18 23:10> *DC/Admit/Observation/Transfer - Attestations Scribe Attestion: 01/17/18 21:18 Documentation prepared by Stella Friedman, acting as medical coder for Gretta Peter MD. <Stella Friedman - Last Filed: 01/17/18 21:16> - Discharge Dispostion Decision to Admit order: No <Gretta Peter - Last Filed: 01/17/18 23:10> Diagnosis at time of Disposition: Dizziness Headache Qualifiers: Headache type: tension-type Headache chronicity pattern: acute headache Intractability: not intractable Qualified Code(s): G44.209 - Tension-type headache, unspecified, not intractable - Discharge Dispostion Disposition: HOME Condition at time of disposition: Stable - Referrals Referrals: Ortiz Gore MD [Primary Care Provider] - Neptali Tom MD [Staff Physician] - - Patient Instructions Printed Discharge Instructions: DI for Headache, Tension Headache (Alternative Therapy), Tension Headache, DI for Dizziness-Nonvertigo, Vertigo, Dizziness, Nonvertigo Additional Instructions: Thank you for coming in to the ER today Please follow up with your doctor tomorrow Please return to the ER for any other concerns or complaints You can take tylenol, Ibuprofen or Excedrin for headaches if you need it - Post Discharge Activity
[2018-01-17] MEDS ORDERED: ACETAMINOPHEN 1000 MG/100 ML VIAL (NON FORMULARY) IVPB ONE (20:04)
[2018-01-17] MEDS ORDERED: METOCLOPRAMIDE HCL INJECTION 10 MG/2 ML VIAL IVPUSH ONE (20:04)
[2018-01-17] MEDS ORDERED: MECLIZINE HCL 25 MG TABLET (FP) PO ONE (20:04)
[2018-01-17] MEDS ORDERED: SODIUM CHLORIDE 1,000 ML IV STA (20:04)
[2018-01-17] MEDS ORDERED: MECLIZINE HCL 25 MG TABLET (FP) ONE (20:14)
[2018-01-17] MEDS ORDERED: ACETAMINOPHEN INJECTION 100 ML IVPB ONE (20:15)
[2018-01-17 20:51] LABS: BASO % 0.6 % (0-2.0); EOS % 1.1 % (0-4.5); HEMATOCRIT 38.3 % (32.4-45.2); HEMOGLOBIN 13.3 GM/dl (10.7-15.3); LYMPH % 29.2 % (8-40); MCH 29.6 pg (25.7-33.7); MCHC 34.8 g/dl (32.0-36.0); MEAN PLT VOLUME 9.8 fl (7.5-11.1); MONO % 7.1 % (3.8-10.2); PLATELET COUNT 228 K/MM3 (134-434); RDW 12.2 % (11.6-15.6); WHITE BLOOD COUNT 9.3 K/mm3 (4.0-10.8)
[2018-01-17 20:58] LABS: ALBUMIN 3.9 g/dl (3.5-5.0); ALK PHOS 109 U/L (32-92); ANION GAP 5 (8-16); BILIRUBIN,TOTAL 0.4 mg/dl (0.2-1.0); BLOOD UREA NITROGEN 14 mg/dl (7-18); CHLORIDE 105 mmol/L (98-107); CO2 28 mmol/L (22-28); CREATININE 0.8 mg/dl (0.6-1.3); GLUCOSE,RANDOM 129 mg/dl (74-106); POTASSIUM 3.6 mmol/L (3.5-5.1); SGOT/AST 21 U/L (10-42); SGPT/ALT 13 U/L (10-40); SODIUM 138 mmol/L (136-145); TOT PROT 6.3 g/dl (6.4-8.3)
--- NOTE | 2018-01-19 09:17 | EKG ---
Test Reason : Blood Pressure : / mmHG Vent. Rate : 070 BPM Atrial Rate : 070 BPM P-R Int : 158 ms QRS Dur : 098 ms QT Int : 422 ms P-R-T Axes : 061 003 038 degrees QTc Int : 455 ms NORMAL SINUS RHYTHM NORMAL ECG WHEN COMPARED WITH ECG OF 19-NOV-2017 00:30, NO SIGNIFICANT CHANGE WAS FOUND Confirmed by HERMES BENDER MD ([id number]) on 01/19/2018 9:17:31 AM Referred By: MD LOUISE Confirmed By:HERMES BENDER MD
== END 2018-01-17 23:21 | disposition home or self-care (01) ==
LOC: FER 19:10
PROC: 3E033NZ Introduction of Analgesics, Hypnotics, Sedatives into Peripheral Vein, Percutaneous Approach (ICD-10-PCS; principal; 2018-01-17)
PROC: 3E033GC Introduction of Other Therapeutic Substance into Peripheral Vein, Percutaneous Approach (ICD-10-PCS; 2018-01-17)
PROC: 3E0337Z Introduction of Electrolytic and Water Balance Substance into Peripheral Vein, Percutaneous Approach (ICD-10-PCS; 2018-01-17)
DX: E78.00 Pure hypercholesterolemia, unspecified (principal); R00.0 Tachycardia, unspecified; Z87.891 Personal history of nicotine dependence
CPT/HCPCS: 36415; 70450-TC; 72125-TC; 80053; 84484; 84703; 85025; 93005; 99283-25; J0131; J7030